=== PATIENT | male | born 1955 | race Caucasian/White ===

== ENCOUNTER 2023-09-20 06:13 | Day surgery (SDC) | payer OTHER, SELFPAY ==
[2023-09-20 08:25] LABS: Glucose - Point of Care 110 mg/dl (70-99)
[2023-09-20 08:31] VITALS: BP 108/73
[2023-09-20 08:41] VITALS: BMI 35.7
[2023-09-20 11:04] VITALS: BP 97/65
[2023-09-20 11:05] VITALS: BP 97/65
[2023-09-20 11:12] LABS: Glucose - Point of Care 97 mg/dl (70-99)
[2023-09-20 11:15] VITALS: BP 99/63
[2023-09-20 11:16] VITALS: BP 99/63
[2023-09-20 11:30] VITALS: BP 116/73
== END 2023-09-20 12:29 | disposition home or self-care (01) ==
LOC: SDS 06:13
PROVIDERS: ATTENDING PHYSICIAN Internal Medicine Gastroenterology
DX: R59.0 Localized enlarged lymph nodes (principal); K86.9 Disease of pancreas, unspecified
CPT/HCPCS: 43238; 88172; 88173; 88305; 82962; 88177; 88342

== ENCOUNTER → 2024-07-09 16:03 | Outpatient (REF) | payer OTHER, SELFPAY | LOC: RAD 16:03 | PROVIDERS: ATTENDING PHYSICIAN Nurse Practitioner Adult Health; FAMILY PHYSICIAN Nurse Practitioner Adult Health | DX: R59.0 Localized enlarged lymph nodes (principal); Z87.891 Personal history of nicotine dependence; R10.31 Right lower quadrant pain; K42.9 Umbilical hernia without obstruction or gangrene; R19.00 Intra-abdominal and pelvic swelling, mass and lump, unspecified site | CPT/HCPCS: 71271; 74177; Q9967 ==

== ENCOUNTER → 2024-07-28 12:39 | Outpatient (REF) | payer OTHER, SELFPAY | LOC: HWRAD 12:39 | PROVIDERS: ATTENDING PHYSICIAN Nurse Practitioner Adult Health; REFERRING PHYSICIAN Specialist | DX: N32.89 Other specified disorders of bladder (principal) | CPT/HCPCS: 76770 ==

== ENCOUNTER → 2024-09-29 07:39 | Outpatient (REF) | payer OTHER, SELFPAY | LOC: RAD 07:39 | PROVIDERS: ATTENDING PHYSICIAN Internal Medicine Gastroenterology; FAMILY PHYSICIAN Nurse Practitioner Adult Health | DX: R10.11 Right upper quadrant pain (principal) | CPT/HCPCS: 78264; A9541 ==

== ENCOUNTER → 2024-11-17 11:17 | Outpatient (REF) | payer OTHER, SELFPAY | LOC: HWRAD 11:17 | PROVIDERS: ATTENDING PHYSICIAN Nurse Practitioner Adult Health | DX: M25.511 Pain in right shoulder (principal) | CPT/HCPCS: 73030 ==